=== PATIENT | male | born 2000 | race African-American/Black ===

== ENCOUNTER 2023-01-24 12:33 | Emergency (ER) | payer SELFPAY ==
[~2023-01-24] VITALS: Ht 182.9 cm; Wt 78.7 kg
[2023-01-24 12:56] VITALS: BP 154/52; PULSE 62; RESP 18; TEMP 97.7; O2SAT 96
[2023-01-24] MEDS ORDERED: IBUP-1456 PO (13:04)
[2023-01-24] MEDS ORDERED: CEPH500C PO (13:04)
== END 2023-01-24 13:26 | disposition home or self-care (01) ==
LOC: ER 12:33
DX: L60.0 Ingrowing nail (principal); Z79.899 Other long term (current) drug therapy

== ENCOUNTER 2023-06-21 12:13 | Emergency (ER) | payer MEDICAID, OTHER ==
[~2023-06-21] VITALS: Ht 182.9 cm; Wt 76.0 kg
[~2023-06-21 12:13] MED LIST: CEPH500C PO; IBUP-1456 PO
[2023-06-21 13:41] VITALS: BP 129/55; PULSE 67; RESP 16; TEMP 99.5; O2SAT 98
[2023-06-21] MEDS ORDERED: DOXY-447 PO (14:06)
== END 2023-06-21 14:14 | disposition home or self-care (01) ==
LOC: ER 12:13
DX: L73.9 Follicular disorder, unspecified (principal)